=== PATIENT | female | born 1985 | race Caucasian/White ===

== ENCOUNTER 2022-11-13 12:20 | Emergency (ER) | payer OTHER ==
[~2022-11-13] VITALS: Ht 152.4 cm; Wt 54.4 kg
[2022-11-13 13:13] LABS: BASO # 0.1 10*3/uL (0.0-0.1); BASO % 0.4 % (0.0-1.0); EOS % 0.2 % (1.0-4.0); HEMATOCRIT 46.5 % (37.0-47.0); LYMPH # 2.1 10*3/uL (1.3-4.4); LYMPH % 15.8 % (27.0-41.0); MEAN CORPUSCULAR HGB CONC 32.9 g/dl (33.0-37.0); MONO # 0.8 10*3/uL (0.1-1.0); MONO % 5.8 % (3.0-9.0); NEUT # 10.1 10*3/uL (2.3-7.9); NEUT % 77.4 % (47.0-73.0); PLATELET COUNT AUTOMATED 243 10*3/uL (130-400); RED BLOOD COUNT 5.47 10*6/uL (4.10-5.10); RED CELL DISTRI WIDTH 13.8 % (0-14.5); WHITE BLOOD COUNT 13.1 10*3/uL (4.8-10.8)
[2022-11-13 13:16] LABS: BILIRUBIN Negative (Negative); BLOOD 3+ (Negative); CLARITY Clear (Clear); COLOR Yellow (Yellow); GLUCOSE Negative (Negative); KETONE 2+ (Negative); LEUKO ESTERASE Trace (Negative); NITRITE Negative (Negative); SPECIFIC GRAVITY 1.025 (1.001-1.030)
[2022-11-13 13:34] LABS: BACTERIA 3+; RBC 16-20 rbc/hpf (0-2)
[2022-11-13 13:37] LABS: ALKALINE PHOSPHATASE 99 U/L (46-116); BUN 17 mg/dl (9-23); CHLORIDE 104 mmol/L (98-107); LIPASE 36 U/L (12-53); POTASSIUM 3.3 mmol/L (3.4-5.1); SGPT/ALT 10 U/L (10-49); TOTAL PROTEIN 8.1 gm/dL (6.0-8.0)
[2022-11-13] MEDS ORDERED: DICYCLOMINE HCL10 MG PO (14:18)
[2022-11-13] MEDS ORDERED: ONDANSETRON4 MG SL (14:18)
[2022-11-13] MEDS ORDERED: CIPRO500 MG PO (14:18)
== END 2022-11-13 14:40 | disposition home or self-care (01) ==
LOC: ED 12:20
PROVIDERS: Student in an Organized Health Care Education/Training Program
DX: K51.00 Ulcerative (chronic) pancolitis without complications (principal); Z88.0 Allergy status to penicillin; Z88.5 Allergy status to narcotic agent

== ENCOUNTER 2022-11-14 13:53 | Emergency (ER) | payer OTHER ==
[~2022-11-14] VITALS: Wt 54.4 kg
[~2022-11-14 13:53] MED LIST: CIPRO500 MG PO; DICYCLOMINE HCL10 MG PO; ONDANSETRON4 MG SL
[2022-11-14 14:39] LABS: BASO % 0.4 % (0.0-1.0); EOS % 0.4 % (1.0-4.0); HEMATOCRIT 42.6 % (37.0-47.0); LYMPH # 1.7 10*3/uL (1.3-4.4); LYMPH % 16.7 % (27.0-41.0); MEAN CELL VOLUME 82.7 fl (81.0-99.0); MEAN CORPUSCULAR HGB 28.5 pg (27.0-31.0); MEAN CORPUSCULAR HGB CONC 34.5 g/dl (33.0-37.0); MEAN PLATELET VOLUME 10.1 fl (9.6-12.3); MONO # 0.6 10*3/uL (0.1-1.0); NEUT # 7.7 10*3/uL (2.3-7.9); NEUT % 76.1 % (47.0-73.0); PLATELET COUNT AUTOMATED 226 10*3/uL (130-400); RED BLOOD COUNT 5.15 10*6/uL (4.10-5.10); RED CELL DISTRI WIDTH 13.2 % (0-14.5); WHITE BLOOD COUNT 10.1 10*3/uL (4.8-10.8)
[2022-11-14 14:51] LABS: ACT PARTIAL THROMBO TIME 23.1 SECONDS (20.0-32.1)
[2022-11-14 15:12] LABS: ALKALINE PHOSPHATASE 101 U/L (46-116); BUN 16 mg/dl (9-23); CHLORIDE 103 mmol/L (98-107); LIPASE 32 U/L (12-53); POTASSIUM 3.2 mmol/L (3.4-5.1); SGPT/ALT 8 U/L (10-49)
[2022-11-14 16:06] LABS: BILIRUBIN Negative (Negative); BLOOD 3+ (Negative); CLARITY Cloudy (Clear); COLOR Red (Yellow); GLUCOSE Negative (Negative); KETONE 3+ (Negative); LEUKO ESTERASE 1+ (Negative); NITRITE Negative (Negative)
[2022-11-14 16:17] LABS: BACTERIA 1+; RBC TNTC rbc/hpf (0-2)
== END 2022-11-14 17:39 | disposition left against medical advice (07) ==
LOC: ED 13:53
PROVIDERS: Internal Medicine
DX: K52.9 Noninfective gastroenteritis and colitis, unspecified (principal); R11.10 Vomiting, unspecified; Z88.0 Allergy status to penicillin; Z88.5 Allergy status to narcotic agent; Z79.899 Other long term (current) drug therapy; Z79.2 Long term (current) use of antibiotics

== ENCOUNTER 2023-01-27 17:11 | Emergency (ER) | payer OTHER ==
[~2023-01-27] VITALS: Ht 152.4 cm; Wt 54.4 kg
[2023-01-27 18:08] LABS: BASO % 0.4 % (0.0-1.0); EOS % 0.2 % (1.0-4.0); HEMATOCRIT 43.7 % (37.0-47.0); LYMPH # 2.2 10*3/uL (1.3-4.4); LYMPH % 23.1 % (27.0-41.0); MEAN CELL VOLUME 84.7 fl (81.0-99.0); MEAN CORPUSCULAR HGB 27.9 pg (27.0-31.0); MEAN PLATELET VOLUME 10.1 fl (9.6-12.3); MONO # 1.2 10*3/uL (0.1-1.0); MONO % 12.3 % (3.0-9.0); NEUT % 63.7 % (47.0-73.0); PLATELET COUNT AUTOMATED 237 10*3/uL (130-400); RED BLOOD COUNT 5.16 10*6/uL (4.10-5.10); WHITE BLOOD COUNT 9.4 10*3/uL (4.8-10.8)
[2023-01-27] MEDS ORDERED: IBU800 M2 PO ×2 (18:13)
[2023-01-27] MEDS ORDERED: AVPAK AZITHROM250 M1 PO ×2 (18:13)
[2023-01-27] MEDS ORDERED: REGLAN10 M1 PO ×2 (18:13)
[2023-01-27 18:34] LABS: ALKALINE PHOSPHATASE 114 U/L (46-116); BUN 23 mg/dl (9-23); CHLORIDE 104 mmol/L (98-107); POTASSIUM 3.2 mmol/L (3.4-5.1); SGPT/ALT 9 U/L (10-49)
== END 2023-01-27 18:49 | disposition left against medical advice (07) ==
LOC: ED 17:11
PROVIDERS: Emergency Medicine
DX: J40 Bronchitis, not specified as acute or chronic (principal); R51.9 Headache, unspecified; M79.10 Myalgia, unspecified site; Z88.0 Allergy status to penicillin; Z88.5 Allergy status to narcotic agent; F17.200 Nicotine dependence, unspecified, uncomplicated

== ENCOUNTER 2023-06-23 18:47 | Emergency (ER) | payer OTHER ==
[~2023-06-23] VITALS: Ht 152.4 cm; Wt 56.7 kg
[~2023-06-23 18:47] MED LIST changes: +AVPAK AZITHROM250 M1 PO; +IBU800 M2 PO; +REGLAN10 M1 PO
[2023-06-23] MEDS ORDERED: Ondansetron Hydrochloride 4 MG/2 ML VIAL IV ONE (19:25)
[2023-06-23] MEDS ORDERED: SODIUM CHLORIDE 0.9% 1,000 ML IV ONE (19:25)
[2023-06-23 19:39] LABS: MEAN CELL VOLUME 80.1 fl (81.0-99.0); MEAN CORPUSCULAR HGB 25.5 pg (27.0-31.0); MEAN CORPUSCULAR HGB CONC 31.9 g/dl (33.0-37.0); MEAN PLATELET VOLUME 10.2 fl (9.6-12.3); PLATELET COUNT AUTOMATED 197 10*3/uL (130-400); RED BLOOD COUNT 5.37 10*6/uL (4.10-5.10); RED CELL DISTRI WIDTH 13.9 % (0-14.5); WHITE BLOOD COUNT 6.4 10*3/uL (4.8-10.8)
[2023-06-23 19:40] LABS: MANUAL DIFF REFLEX YES
[2023-06-23 20:04] LABS: ALKALINE PHOSPHATASE 102 U/L (46-116); BUN 20 mg/dl (9-23); CHLORIDE 103 mmol/L (98-107); LIPASE 27 U/L (12-53); SGPT/ALT 11 U/L (5-49); TOTAL PROTEIN 7.9 gm/dL (6.0-8.0)
[2023-06-23 20:07] LABS: ATYPICAL LYMPHS 5 % (0-0); PLATELET SUFFICIENCY NORMAL (NORMAL); TOTAL CELLS COUNTED 100 #CELLS
[2023-06-23 20:08] LABS: OVALOCYTES FEW
[2023-06-23 20:09] LABS: ROULEAUX SLIGHT
[2023-06-23] MEDS ORDERED: ONDANSETRON4 MG SL (21:36)
== END 2023-06-23 21:48 | disposition home or self-care (01) ==
LOC: ED 18:47
PROVIDERS: Internal Medicine
DX: B34.9 Viral infection, unspecified (principal); Z20.822 Contact with and (suspected) exposure to COVID-19; R11.2 Nausea with vomiting, unspecified; E87.6 Hypokalemia; F12.90 Cannabis use, unspecified, uncomplicated; F17.200 Nicotine dependence, unspecified, uncomplicated; Z88.0 Allergy status to penicillin; Z88.5 Allergy status to narcotic agent; Z98.51 Tubal ligation status; Z90.49 Acquired absence of other specified parts of digestive tract; Z98.890 Other specified postprocedural states

== ENCOUNTER 2023-06-29 11:16 | Emergency (ER) | payer OTHER ==
[~2023-06-29] VITALS: Ht 152.4 cm; Wt 54.4 kg
[2023-06-29] MEDS ORDERED: SODIUM CHLORIDE 0.9% 1,000 ML IV ONE (11:40)
[2023-06-29] MEDS ORDERED: Ondansetron Hydrochloride 4 MG/2 ML VIAL IV ONE (11:40)
[2023-06-29 12:00] LABS: BASO % 0.5 % (0.0-1.0); EOS # 0.1 10*3/uL (0.0-0.4); EOS % 0.7 % (1.0-4.0); HEMATOCRIT 43.9 % (37.0-47.0); LYMPH % 24.1 % (27.0-41.0); MEAN CELL VOLUME 78.1 fl (81.0-99.0); MEAN CORPUSCULAR HGB 25.4 pg (27.0-31.0); MEAN CORPUSCULAR HGB CONC 32.6 g/dl (33.0-37.0); MEAN PLATELET VOLUME 9.6 fl (9.6-12.3); MONO # 0.8 10*3/uL (0.1-1.0); MONO % 9.2 % (3.0-9.0); NEUT # 5.4 10*3/uL (2.3-7.9); NEUT % 64.9 % (47.0-73.0); PLATELET COUNT AUTOMATED 246 10*3/uL (130-400); RED BLOOD COUNT 5.62 10*6/uL (4.10-5.10); RED CELL DISTRI WIDTH 13.6 % (0-14.5); WHITE BLOOD COUNT 8.4 10*3/uL (4.8-10.8)
[2023-06-29 12:20] LABS: BUN 16 mg/dl (9-23); CHLORIDE 100 mmol/L (98-107); POTASSIUM 2.8 mmol/L (3.4-5.1)
[2023-06-29] MEDS ORDERED: Ketorolac Tromethamine 30 MG/ML VIAL IV ONE (12:30)
[2023-06-29] MEDS ORDERED: POTASSIUM CHLORIDE 20 MEQ TAB PO ONE (12:30)
[2023-06-29 12:36] LABS: BILIRUBIN Negative (Negative); BLOOD 3+ (Negative); CLARITY Clear (Clear); COLOR Yellow (Yellow); GLUCOSE Negative (Negative); KETONE 2+ (Negative); LEUKO ESTERASE Negative (Negative); NITRITE Negative (Negative); PH 6.5 (4.5-8.0); SPECIFIC GRAVITY >= 1.030 (1.001-1.030)
[2023-06-29 12:42] LABS: BACTERIA 3+
[2023-06-29] MEDS ORDERED: Ceftriaxone Sodium 1 GM/10 ML SYR IV ONE (12:50)
[2023-06-29] MEDS ORDERED: POTASSIUM CHLORIDE IN WATER 100 ML IV SCH (13:00)
[2023-06-29] MEDS ORDERED: ONDANSETRON4 MG SL (13:25)
[2023-06-29] MEDS ORDERED: OMNICEF300 MG PO (13:25)
[2023-06-29] MEDS ORDERED: SODIUM CHLORIDE 0.9% 500 ML IV ONE (13:52)
== END 2023-06-29 14:06 | disposition home or self-care (01) ==
LOC: ED 11:16
PROVIDERS: Nurse Practitioner Family
DX: N39.0 Urinary tract infection, site not specified (principal); E87.6 Hypokalemia; E87.1 Hypo-osmolality and hyponatremia; R11.2 Nausea with vomiting, unspecified; Z88.0 Allergy status to penicillin; Z88.5 Allergy status to narcotic agent; Z98.51 Tubal ligation status; Z90.49 Acquired absence of other specified parts of digestive tract; Z98.890 Other specified postprocedural states; F12.90 Cannabis use, unspecified, uncomplicated; F17.210 Nicotine dependence, cigarettes, uncomplicated

== ENCOUNTER 2023-11-26 04:52 | Emergency (ER) | payer OTHER ==
[~2023-11-26] VITALS: Ht 160 cm; Wt 59.0 kg
[~2023-11-26 04:52] MED LIST changes: +OMNICEF300 MG PO
[2023-11-26] MEDS ORDERED: Dicyclomine Hydrochloride 20 MG/10 ML OSYR PO STA (05:06)
[2023-11-26] MEDS ORDERED: Lidocaine Hydrochloride 15 ML UDC PO STA (05:06)
[2023-11-26] MEDS ORDERED: MG-AL HYDROXIDE/SIMETICONE 30 ML UDC PO STA (05:06)
[2023-11-26] MEDS ORDERED: SODIUM CHLORIDE 0.9% 1,000 ML IV ONE (05:10)
[2023-11-26 05:52] LABS: ALKALINE PHOSPHATASE 95 U/L (46-116); BUN 19 mg/dl (9-23); CHLORIDE 110 mmol/L (98-107); POTASSIUM 4.7 mmol/L (3.4-5.1); SGPT/ALT 17 U/L (5-49); TOTAL PROTEIN 6.8 gm/dL (6.0-8.0)
[2023-11-26 05:57] LABS: BASO # 0.1 10*3/uL (0.0-0.1); BASO % 0.8 % (0.0-1.0); EOS # 0.3 10*3/uL (0.0-0.4); EOS % 3.8 % (1.0-4.0); HEMATOCRIT 38.9 % (37.0-47.0); LYMPH # 2.8 10*3/uL (1.3-4.4); LYMPH % 32.3 % (27.0-41.0); MEAN CELL VOLUME 83.5 fl (81.0-99.0); MEAN CORPUSCULAR HGB 26.6 pg (27.0-31.0); MEAN CORPUSCULAR HGB CONC 31.9 g/dl (33.0-37.0); MEAN PLATELET VOLUME 9.7 fl (9.6-12.3); MONO # 0.9 10*3/uL (0.1-1.0); MONO % 10.4 % (3.0-9.0); NEUT # 4.6 10*3/uL (2.3-7.9); NEUT % 52.2 % (47.0-73.0); PLATELET COUNT AUTOMATED 289 10*3/uL (130-400); RED BLOOD COUNT 4.66 10*6/uL (4.10-5.10); RED CELL DISTRI WIDTH 14.8 % (0-14.5); WHITE BLOOD COUNT 8.8 10*3/uL (4.8-10.8)
[2023-11-26] MEDS ORDERED: PEPCID AC10 M2 PO (06:18)
[2023-11-26 06:29] LABS: ACT PARTIAL THROMBO TIME 23.3 SECONDS (20.0-32.1)
== END 2023-11-26 06:27 | disposition home or self-care (01) ==
LOC: ED 04:52
PROVIDERS: Internal Medicine
DX: K21.9 Gastro-esophageal reflux disease without esophagitis (principal); M79.602 Pain in left arm; M79.601 Pain in right arm; F17.200 Nicotine dependence, unspecified, uncomplicated; F12.90 Cannabis use, unspecified, uncomplicated; Z88.0 Allergy status to penicillin; Z88.5 Allergy status to narcotic agent; Z90.49 Acquired absence of other specified parts of digestive tract; Z98.51 Tubal ligation status; Z98.890 Other specified postprocedural states

== ENCOUNTER 2024-06-30 21:03 | Emergency (ER) | payer OTHER ==
[~2024-06-30] VITALS: Ht 167.6 cm; Wt 54.4 kg
[~2024-06-30 21:03] MED LIST changes: +PEPCID AC10 M2 PO
[2024-06-30] MEDS ORDERED: hydrOXYzine pamoate 25 MG CAP PO ONE (21:50)
[2024-06-30] MEDS ORDERED: VISTARIL25 MG PO (21:52)
== END 2024-06-30 22:15 | disposition home or self-care (01) ==
LOC: ED 21:03
DX: F41.9 Anxiety disorder, unspecified (principal); R07.89 Other chest pain; R06.02 Shortness of breath; F17.200 Nicotine dependence, unspecified, uncomplicated; F12.90 Cannabis use, unspecified, uncomplicated; Z88.0 Allergy status to penicillin; Z88.5 Allergy status to narcotic agent; Z90.49 Acquired absence of other specified parts of digestive tract; Z98.51 Tubal ligation status; Z98.890 Other specified postprocedural states

== ENCOUNTER 2024-07-08 17:55 | Emergency (ER) | payer SELFPAY ==
[~2024-07-08] VITALS: Ht 152.4 cm; Wt 54.4 kg
[~2024-07-08 17:55] MED LIST changes: +VISTARIL25 MG PO
[2024-07-08] MEDS ORDERED: FLUOXETINE HCL10 MG PO (18:50)
[2024-07-08] MEDS ORDERED: Acetaminophen/Oxycodone 5 MG/325 MG TABLET PO ONE (19:50)
[2024-07-08] MEDS ORDERED: MELOXICAM15 MG PO (21:12)
== END 2024-07-08 21:26 | disposition home or self-care (01) ==
LOC: ED 17:55
DX: S20.211A Contusion of right front wall of thorax, initial encounter (principal); F17.200 Nicotine dependence, unspecified, uncomplicated; Z88.0 Allergy status to penicillin; Z88.5 Allergy status to narcotic agent; Z79.899 Other long term (current) drug therapy; Z98.51 Tubal ligation status; Z90.49 Acquired absence of other specified parts of digestive tract; X50.9XXA Other and unspecified overexertion or strenuous movements or postures, initial encounter; Y93.K1 Activity, walking an animal; Y92.89 Other specified places as the place of occurrence of the external cause; Y99.8 Other external cause status

== ENCOUNTER 2024-09-16 14:20 | Emergency (ER) | payer SELFPAY ==
[~2024-09-16] VITALS: Ht 152.4 cm; Wt 54.4 kg
[~2024-09-16 14:20] MED LIST changes: +FLUOXETINE HCL10 MG PO; +MELOXICAM15 MG PO
[2024-09-16] MEDS ORDERED: Ketorolac Tromethamine 15 MG/ML VIAL IV ONE (14:40)
[2024-09-16] MEDS ORDERED: SODIUM CHLORIDE 0.9% 1,000 ML IV ONE (14:40)
[2024-09-16] MEDS ORDERED: LORazepam 1 MG TAB PO ONE (14:40)
[2024-09-16 15:00] LABS: BASO # 0.1 10*3/uL (0.0-0.1); BASO % 0.6 % (0.0-1.0); EOS # 0.2 10*3/uL (0.0-0.4); EOS % 2.4 % (1.0-4.0); MEAN CELL VOLUME 86.2 fl (81.0-99.0); MEAN CORPUSCULAR HGB 27.5 pg (27.0-31.0); MEAN CORPUSCULAR HGB CONC 31.9 g/dl (33.0-37.0); MEAN PLATELET VOLUME 9.5 fl (9.6-12.3); MONO # 0.9 10*3/uL (0.1-1.0); MONO % 9.3 % (3.0-9.0); NEUT # 6.5 10*3/uL (2.3-7.9); NEUT % 65.9 % (47.0-73.0); PLATELET COUNT AUTOMATED 234 10*3/uL (130-400); RED BLOOD COUNT 4.29 10*6/uL (4.10-5.10); RED CELL DISTRI WIDTH 13.9 % (0-14.5); WHITE BLOOD COUNT 9.9 10*3/uL (4.8-10.8)
[2024-09-16 15:19] LABS: BUN 13 mg/dl (9-23); CHLORIDE 106 mmol/L (98-107); POTASSIUM 2.9 mmol/L (3.4-5.1)
[2024-09-16] MEDS ORDERED: POTASSIUM CHLORIDE 20 MEQ TAB PO ONE (15:25)
[2024-09-16] MEDS ORDERED: POTASSIUM CHLO20 ME3 PO (15:30)
== END 2024-09-16 15:31 | disposition home or self-care (01) ==
LOC: ED 14:20
PROVIDERS: Emergency Medicine
DX: R07.89 Other chest pain (principal); F41.9 Anxiety disorder, unspecified; E87.6 Hypokalemia; F17.200 Nicotine dependence, unspecified, uncomplicated; Z88.0 Allergy status to penicillin; Z88.5 Allergy status to narcotic agent; Z79.899 Other long term (current) drug therapy; Z90.49 Acquired absence of other specified parts of digestive tract

== ENCOUNTER 2024-09-20 18:46 | Emergency (ER) | payer SELFPAY ==
[~2024-09-20] VITALS: Ht 152.4 cm; Wt 54.4 kg
[~2024-09-20 18:46] MED LIST changes: +POTASSIUM CHLO20 ME3 PO
[2024-09-20] MEDS ORDERED: Ketorolac Tromethamine 60 MG/2 ML VIAL IM ONE (20:50)
[2024-09-20] MEDS ORDERED: NAPROXEN250 MG PO (20:54)
== END 2024-09-20 21:12 | disposition home or self-care (01) ==
LOC: ED 18:46
DX: M25.562 Pain in left knee (principal); F32.A Depression, unspecified; F41.9 Anxiety disorder, unspecified; F17.200 Nicotine dependence, unspecified, uncomplicated; Z79.899 Other long term (current) drug therapy; Z88.0 Allergy status to penicillin; Z88.5 Allergy status to narcotic agent; Z90.49 Acquired absence of other specified parts of digestive tract; Z98.51 Tubal ligation status; Z98.890 Other specified postprocedural states

== ENCOUNTER 2024-10-08 22:59 | Emergency (ER) | payer SELFPAY ==
[~2024-10-08] VITALS: Ht 152.4 cm; Wt 70.3 kg
[~2024-10-08 22:59] MED LIST changes: +NAPROXEN250 MG PO
== END 2024-10-09 00:13 | disposition home or self-care (01) ==
LOC: ED 22:59
DX: M62.838 Other muscle spasm (principal); M25.562 Pain in left knee; F32.A Depression, unspecified; F41.9 Anxiety disorder, unspecified; F17.200 Nicotine dependence, unspecified, uncomplicated; Z79.899 Other long term (current) drug therapy; Z88.0 Allergy status to penicillin; Z88.5 Allergy status to narcotic agent; Z90.49 Acquired absence of other specified parts of digestive tract; Z98.51 Tubal ligation status; Z98.890 Other specified postprocedural states

== ENCOUNTER 2024-10-22 21:20 | Emergency (ER) | payer OTHER ==
[~2024-10-22] VITALS: Ht 152.4 cm; Wt 70.3 kg
[2024-10-22] MEDS ORDERED: LORazepam 1 MG TAB PO ONE (22:10)
[2024-10-22 22:22] LABS: BASO # 0.1 10*3/uL (0.0-0.1); BASO % 0.6 % (0.0-1.0); EOS # 0.2 10*3/uL (0.0-0.4); EOS % 2.6 % (1.0-4.0); HEMATOCRIT 37.8 % (37.0-47.0); MEAN CELL VOLUME 83.6 fl (81.0-99.0); MEAN CORPUSCULAR HGB 27.4 pg (27.0-31.0); MEAN CORPUSCULAR HGB CONC 32.8 g/dl (33.0-37.0); MEAN PLATELET VOLUME 9.9 fl (9.6-12.3); MONO % 10.6 % (3.0-9.0); NEUT % 53.4 % (47.0-73.0); PLATELET COUNT AUTOMATED 237 10*3/uL (130-400); RED BLOOD COUNT 4.52 10*6/uL (4.10-5.10); RED CELL DISTRI WIDTH 13.3 % (0-14.5); WHITE BLOOD COUNT 9.3 10*3/uL (4.8-10.8)
[2024-10-22 22:41] LABS: BUN 20 mg/dl (9-23); CHLORIDE 107 mmol/L (98-107); POTASSIUM 3.4 mmol/L (3.4-5.1)
[2024-10-22] MEDS ORDERED: VISTARIL25 MG PO (23:08)
== END 2024-10-22 23:13 | disposition home or self-care (01) ==
LOC: ED 21:20
PROVIDERS: Internal Medicine
DX: F41.9 Anxiety disorder, unspecified (principal); R20.0 Anesthesia of skin; Z88.0 Allergy status to penicillin; Z88.5 Allergy status to narcotic agent; Z79.899 Other long term (current) drug therapy; Z90.49 Acquired absence of other specified parts of digestive tract; Z87.891 Personal history of nicotine dependence

== ENCOUNTER → 2025-01-12 | Outpatient (CLI) | payer OTHER | LOC: CARD 00:07 | PROVIDERS: ATTEND Family Medicine | DX: I08.0 Rheumatic disorders of both mitral and aortic valves (principal); R07.89 Other chest pain ==

== ENCOUNTER 2025-01-26 21:13 | Emergency (ER) | payer OTHER ==
[~2025-01-26] VITALS: Ht 160 cm; Wt 70.8 kg
[~2025-01-26 21:13] MED LIST changes: +METRONIDAZOLE500 M1 PO; +PREDNISONE10 MG PO
[2025-01-26] MEDS ORDERED: Promethazine Hydrochloride 25 MG/ML VIAL IM ONE (21:45)
== END 2025-01-26 22:17 | disposition home or self-care (01) ==
LOC: ED 21:13
DX: R10.10 Upper abdominal pain, unspecified (principal); K85.90 Acute pancreatitis without necrosis or infection, unspecified; F17.200 Nicotine dependence, unspecified, uncomplicated; Z88.0 Allergy status to penicillin; Z88.5 Allergy status to narcotic agent; Z79.899 Other long term (current) drug therapy; Z90.49 Acquired absence of other specified parts of digestive tract; Z98.890 Other specified postprocedural states

== ENCOUNTER 2025-01-29 10:58 | Emergency (ER) | payer OTHER ==
[~2025-01-29] VITALS: Ht 152.4 cm; Wt 6.4 kg
[2025-01-29] MEDS ORDERED: SODIUM CHLORIDE 0.9% 1,000 ML IV ONE (12:20)
[2025-01-29 12:32] LABS: MEAN CELL VOLUME 86.6 fl (81.0-99.0); MEAN CORPUSCULAR HGB 27.4 pg (27.0-31.0); MEAN PLATELET VOLUME 9.3 fl (9.6-12.3); NUCLEATED RED BLOOD CELL 0.0 % (0.0-0.0); NUCLEATED RED BLOOD CELL 0.0 10*3/uL (0.0-0.0); PLATELET COUNT AUTOMATED 323 10*3/uL (130-400); RED CELL DISTRI WIDTH 14.1 % (0-14.5)
[2025-01-29 12:33] LABS: MANUAL DIFF REFLEX YES
[2025-01-29 12:55] LABS: BILIRUBIN Negative (Negative); BLOOD Trace-Lysed (Negative); CLARITY Clear (Clear); COLOR Yellow (Yellow); KETONE Trace (Negative); LEUKO ESTERASE Negative (Negative); NITRITE Negative (Negative); PH 5.5 (4.5-8.0); SPECIFIC GRAVITY >= 1.030 (1.001-1.030); UROBILINOGEN 1.0 E.U./dl (0.0-1.0)
[2025-01-29 12:56] LABS: PLATELET SUFFICIENCY NORMAL (NORMAL)
[2025-01-29 12:57] LABS: BUN 23 mg/dl (9-23); SGPT/ALT 50 U/L (5-49)
[2025-01-29 13:09] LABS: BACTERIA 2+
[2025-01-29 13:10] LABS: WBC 0-2 wbc/hpf (0-5); YEAST 2+
[2025-01-29] MEDS ORDERED: MIRALAX POWDER17 G1 PO (14:12)
[2025-01-29] MEDS ORDERED: Na Phos, Dibasic/Na Phos, Mo 1 EA BOT R ONE (14:20)
[2025-01-29] MEDS ORDERED: Polyethylene Glycol 3350 17 GM PACKET PO ONE (14:20)
== END 2025-01-29 14:21 | disposition home or self-care (01) ==
LOC: ED 10:58
DX: K59.00 Constipation, unspecified (principal); F41.9 Anxiety disorder, unspecified; K21.9 Gastro-esophageal reflux disease without esophagitis; F17.210 Nicotine dependence, cigarettes, uncomplicated; Z88.0 Allergy status to penicillin; Z88.5 Allergy status to narcotic agent; Z79.899 Other long term (current) drug therapy; Z90.49 Acquired absence of other specified parts of digestive tract

== ENCOUNTER 2025-02-01 17:41 | Emergency (ER) | payer OTHER ==
[~2025-02-01] VITALS: Ht 152.4 cm; Wt 65.3 kg
[~2025-02-01 17:41] MED LIST changes: +MIRALAX POWDER17 G1 PO
[2025-02-01] MEDS ORDERED: SODIUM CHLORIDE 0.9% 1,000 ML IV ONE (18:20)
[2025-02-01 18:41] LABS: BASO # 0.0 10*3/uL (0.0-0.1); BASO % 0.3 % (0.0-1.0); EOS # 0.3 10*3/uL (0.0-0.4); EOS % 1.6 % (1.0-4.0); MEAN CELL VOLUME 87.0 fl (81.0-99.0); MEAN CORPUSCULAR HGB 27.3 pg (27.0-31.0); MEAN PLATELET VOLUME 9.0 fl (9.6-12.3); MONO # 1.3 10*3/uL (0.1-1.0); MONO % 8.6 % (3.0-9.0); NEUT # 10.2 10*3/uL (2.3-7.9); NEUT % 66.4 % (47.0-73.0); NUCLEATED RED BLOOD CELL 0.0 % (0.0-0.0); NUCLEATED RED BLOOD CELL 0.0 10*3/uL (0.0-0.0); PLATELET COUNT AUTOMATED 329 10*3/uL (130-400); RED CELL DISTRI WIDTH 14.1 % (0-14.5)
[2025-02-01 18:58] LABS: BUN 19 mg/dl (9-23); SGPT/ALT 23 U/L (5-49)
[2025-02-01 19:49] LABS: BILIRUBIN Negative (Negative); BLOOD Negative (Negative); CLARITY Clear (Clear); COLOR Yellow (Yellow); KETONE Trace (Negative); LEUKO ESTERASE Negative (Negative); NITRITE Negative (Negative); PH 5.5 (4.5-8.0); SPECIFIC GRAVITY >= 1.030 (1.001-1.030); UROBILINOGEN 1.0 E.U./dl (0.0-1.0)
[2025-02-01 20:01] LABS: WBC 0-2 wbc/hpf (0-5)
== END 2025-02-01 21:15 | disposition left against medical advice (07) ==
LOC: ED 17:41
PROVIDERS: Emergency Medicine
DX: R10.9 Unspecified abdominal pain (principal); F12.90 Cannabis use, unspecified, uncomplicated; F17.210 Nicotine dependence, cigarettes, uncomplicated; Z98.51 Tubal ligation status; Z90.49 Acquired absence of other specified parts of digestive tract; Z88.0 Allergy status to penicillin; Z88.5 Allergy status to narcotic agent; Z53.29 Procedure and treatment not carried out because of patient's decision for other reasons

== ENCOUNTER → 2025-02-10 | Outpatient (CLI) | payer OTHER ==
[~2025-02-10] MED LIST changes: +GADOTERATE MEGLUMINE 7.5 MMOL/15 ML VIAL IV ONE; +SODIUM CHLORIDE 0.9% 50 ML IV ONE
== END | disposition home or self-care (01) ==
LOC: MRI 00:05
PROVIDERS: ATTEND Internal Medicine
DX: K86.89 Other specified diseases of pancreas (principal); K85.90 Acute pancreatitis without necrosis or infection, unspecified

== ENCOUNTER → 2025-03-14 | Outpatient (CLI) | payer OTHER ==
[~2025-03-14] MED LIST changes: -GADOTERATE MEGLUMINE 7.5 MMOL/15 ML VIAL IV ONE; -SODIUM CHLORIDE 0.9% 50 ML IV ONE
== END | disposition home or self-care (01) ==
LOC: CARD 04:29
PROVIDERS: ATTEND Internal Medicine Cardiovascular Disease
DX: I45.6 Pre-excitation syndrome (principal)